=== PATIENT | female | born 1985 ===

== ENCOUNTER 2017-01-18 14:00 | Outpatient (RCR) | payer OTHER | END 2017-01-24 | disposition home or self-care (01) | LOC: PTY 14:00 | DX: Z87.821 Personal history of retained foreign body fully removed (principal); M76.61 Achilles tendinitis, right leg ==

== ENCOUNTER 2017-02-22 13:45 | Outpatient (RCR) | payer OTHER | END 2017-02-24 | disposition home or self-care (01) | LOC: PTY 13:45 | DX: M76.61 Achilles tendinitis, right leg (principal); Z18.9 Retained foreign body fragments, unspecified material | CPT/HCPCS: 97035; 97110; 97140; G0283 ==